=== PATIENT | male | born 2000 | race Caucasian/White ===

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

== ENCOUNTER 2021-04-12 19:56 | Emergency (ER) | payer MEDICAID, OTHER ==
[~2021-04-12] VITALS: Ht 167.6 cm; Wt 56.7 kg
--- NOTE | 2021-04-12 20:04 | NUR ---
BIBS C/O SORETHROAT X1 MONTH. A/OX4. TOLERATING R/A WELL WITH NO SOB
[2021-04-12] MEDS ORDERED: AMOX500T2 PO (20:40)
--- NOTE | 2021-04-12 21:09 | NUR ---
Patient discharged to home in stable condition. RX Written and verbal after care instructions given. Patient verbalizes understanding of instruction. PT ambulatory with a steady gait.
[2021-04-12 21:12] VITALS: BP 115/71
== END 2021-04-12 21:14 | disposition home or self-care (01) ==
LOC: ER 20:00
DX: J02.9 Acute pharyngitis, unspecified (principal)